=== PATIENT | female | born 1945 | race Caucasian/White ===

== ENCOUNTER 2022-01-24 06:02 | Inpatient (IN) | payer MEDICARE ==
[2022-01-24] MEDS ORDERED: Lactated Ringers 1,000 ML IV SCH (07:00)
[2022-01-24] MEDS: Nozin Nasal Sanitizer NASBOTH SCH ×3 (07:01→21:00)
[2022-01-24 07:20] LABS: CORONAVIRUS COVID-19 NAA NEGATIVE (NEGATIVE)
[2022-01-24] MEDS ORDERED: Midazolam 1 MG/ML 2 ML SDV ONE (07:20)
[2022-01-24] MEDS ORDERED: fentaNYL 100 MCG/2 ML SDV ONE (07:20)
[2022-01-24] MEDS ORDERED: Propofol 200 MG/20 ML SDV ONE (07:20)
[2022-01-24] MEDS ORDERED: ceFAZolin 2 GM in Premix Bag 1 BAG IV ONE (07:30)
[2022-01-24] MEDS ORDERED: SODIUM CHLORIDE 0.9% IV ONE (07:45)
[2022-01-24] MEDS ORDERED: TRANEXAMIC ACID IV ONE (07:45)
[2022-01-24] MEDS ORDERED: Sodium Chloride 0.9% 10 ML ONE (08:24)
[2022-01-24] MEDS ORDERED: ePHEDrine 50 MG/ML SDV ONE (08:24)
[2022-01-24] MEDS ORDERED: Lactated Ringers 1,000 ML ONE (09:06)
[2022-01-24] MEDS ORDERED: Ondansetron 4 MG/2 ML SDV IVPUSH PRN (09:19)
[2022-01-24] MEDS ORDERED: HYDROmorphone 0.5 MG/0.5 ML Syringe IVPUSH PRN (09:24)
[2022-01-24] MEDS ORDERED: diphenhydrAMINE 25 MG Cap PO PRN (09:25)
[2022-01-24] MEDS ORDERED: Melatonin 3 MG Tab PO PRN (09:39)
[2022-01-24] MEDS ORDERED: Acetaminophen 325 MG Tab PO SCH (10:00)
[2022-01-24] MEDS: Ketorolac 30 MG/ML SDV IVPUSH SCH ×2 (10:34→19:16)
[2022-01-24] MEDS: Acetaminophen 500 MG Tab PO SCH ×3 (10:38→21:04)
[2022-01-24] MEDS: traMADol 50 MG Tab PO PRN (12:25)
[2022-01-24] MEDS: Sodium Chloride 0.9% 1,000 ML IV SCH ×2 (12:38→21:10)
[2022-01-24] MEDS: oxyCODONE 5 MG Tab PO PRN ×2 (13:59→21:03)
[2022-01-24] MEDS: ceFAZolin 1 GM in Premix Bag 1 BAG IV SCH ×2 (14:00→21:47)
[2022-01-24] MEDS: Cyclobenzaprine 10 MG Tab PO PRN (16:11)
[2022-01-24] MEDS: Lisinopril 5 MG Tab PO SCH (21:01)
[2022-01-24] MEDS: Docusate Sodium 100 MG Cap PO SCH (21:01)
[2022-01-25] MEDS: oxyCODONE 5 MG Tab PO PRN ×2 (01:45→15:39)
[2022-01-25] MEDS: Acetaminophen 500 MG Tab PO SCH ×4 (05:19→21:19)
[2022-01-25] MEDS: Sodium Chloride 0.9% 1,000 ML IV SCH (05:20)
[2022-01-25] MEDS: ceFAZolin 1 GM in Premix Bag 1 BAG IV SCH (06:03)
[2022-01-25] MEDS: traMADol 50 MG Tab PO PRN ×3 (08:53→19:05)
[2022-01-25] MEDS: Celecoxib 200 MG Cap PO SCH ×2 (08:54→20:10)
[2022-01-25] MEDS: Docusate Sodium 100 MG Cap PO SCH ×2 (08:54→20:10)
[2022-01-25] MEDS: Enoxaparin 30 MG/0.3 ML Syringe SUBCUT SCH (08:56)
[2022-01-25] MEDS: Nozin Nasal Sanitizer NASBOTH SCH ×2 (08:56→20:10)
[2022-01-25] MEDS: Lisinopril 5 MG Tab PO SCH ×2 (10:49→20:11)
[2022-01-25] MEDS: Cyclobenzaprine 10 MG Tab PO PRN (21:18)
[2022-01-26] MEDS: Acetaminophen 500 MG Tab PO SCH ×4 (04:40→21:33)
[2022-01-26] MEDS: traMADol 50 MG Tab PO PRN ×5 (04:44→21:30)
[2022-01-26] MEDS: Lisinopril 5 MG Tab PO SCH ×2 (08:43→21:32)
[2022-01-26] MEDS: Enoxaparin 30 MG/0.3 ML Syringe SUBCUT SCH (08:43)
[2022-01-26] MEDS: Docusate Sodium 100 MG Cap PO SCH ×2 (08:43→21:31)
[2022-01-26] MEDS: Celecoxib 200 MG Cap PO SCH ×2 (08:44→21:31)
[2022-01-26] MEDS: Nozin Nasal Sanitizer NASBOTH SCH ×2 (08:44→21:31)
[2022-01-26] MEDS: oxyCODONE 5 MG Tab PO PRN (20:09)
[2022-01-27] MEDS: traMADol 50 MG Tab PO PRN ×3 (01:54→15:54)
[2022-01-27] MEDS: Acetaminophen 500 MG Tab PO SCH ×2 (04:33→10:49)
[2022-01-27] MEDS: oxyCODONE 5 MG Tab PO PRN (04:54)
[2022-01-27] MEDS: Nozin Nasal Sanitizer NASBOTH SCH (08:48)
[2022-01-27] MEDS: Celecoxib 200 MG Cap PO SCH (08:49)
[2022-01-27] MEDS: Enoxaparin 30 MG/0.3 ML Syringe SUBCUT SCH (08:49)
[2022-01-27] MEDS: Lisinopril 5 MG Tab PO SCH (08:49)
[2022-01-27] MEDS: Docusate Sodium 100 MG Cap PO SCH (08:49)
== END 2022-01-27 16:08 | disposition home health service (06) | DRG 470 ==
LOC: JP.SDS 06:02 → JP.MS 09:19 → JP.SDS 01-25 08:20 → JP.MS 01-25 08:25
PROVIDERS: ADMIT Specialist; ATTEND Specialist
PROC: 0SR90JZ Replacement of Right Hip Joint with Synthetic Substitute, Open Approach (ICD-10-PCS; principal; 2022-01-24)
DX: M16.11 Unilateral primary osteoarthritis, right hip (principal); E11.9 Type 2 diabetes mellitus without complications; I10 Essential (primary) hypertension; G89.29 Other chronic pain; Z79.899 Other long term (current) drug therapy
CPT/HCPCS: 0241U; 27130; 36415; 72170; 72170-26; 80053; 85027; 93005; 97110-GP; 97116-GP; 97162-GP; 97165-GO; 97530-GP; 97535-GP; A9270-GY; C1713; C1776; J0690; J1650; J1885; J2250; J2405; J2704; J3010; J3490; J7030; J7120

== ENCOUNTER 2024-09-09 09:25 | Inpatient (IN) | payer MEDICARE ==
[~2024-09-09 09:25] MED LIST: Bupivacaine 0.5% 50 ML MDV ONE
[2024-09-09 10:00] LABS: HEMATOCRIT 41.1 % (34.3-46.0); HEMOGLOBIN 13.6 g/dL (11.2-15.5); MEAN CORPUSCULAR HEMOGLOBIN 32.2 pg (31.6-35.5); MEAN CORPUSCULAR HGB CONC 33.1 g/dL (31.6-35.5); MEAN CORPUSCULAR VOLUME 97.4 fL (81.4-99.0); RED BLOOD CELL COUNT 4.22 M/uL (3.77-5.24); WHITE BLOOD CELL COUNT,WBC 12.4 K/uL (3.2-11.0)
[2024-09-09] MEDS: Lactated Ringers 1,000 ML IV SCH (10:00)
[2024-09-09] MEDS ORDERED: Midazolam 1 MG/ML 2 ML SDV ONE (10:17)
[2024-09-09] MEDS ORDERED: fentaNYL 100 MCG/2 ML SDV ONE (10:17)
[2024-09-09] MEDS ORDERED: Propofol 200 MG/20 ML SDV ONE ×2 (10:17→14:20)
[2024-09-09 10:20] LABS: A/G RATIO 1.2 (1.2-2.2); ALANINE AMINOTRANSFERASE,ALT 18 U/L (12-78); ALBUMIN 4.1 g/dL (3.4-5.0); ALKALINE PHOSPHATASE 75 U/L (46-116); ANION GAP 7.4 mmol/L (5.0-14.0); ASPARTATE AMNIOTRANSFERASE,AST 11 U/L (15-37); BILIRUBIN TOTAL 1.1 mg/dL (0.2-1.0); BLOOD UREA NITROGEN,BUN 13 mg/dL (7-18); CARBON DIOXIDE,CO2 31 mmol/L (21-32); CHLORIDE,CL 104 mmol/L (100-108); EST CRCL DRUG DOSING (CG) 32.49 mL/min; ESTIMATED GFR 57 mL/min (>60); GLUCOSE RANDOM 105 mg/dL (74-106); POTASSIUM,K 4.3 mmol/L (3.6-5.2); PROTEIN TOTAL,TP 7.5 g/dL (6.4-8.2); SODIUM,NA 142 mmol/L (140-148)
[2024-09-09] MEDS: Nozin Nasal Sanitizer NASBOTH SCH ×2 (11:02→20:01)
[2024-09-09] MEDS: ceFAZolin 2 GM in Premix Bag 1 BAG IV ONE (13:25)
[2024-09-09] MEDS ORDERED: Lactated Ringers 1,000 ML ONE (13:47)
[2024-09-09] MEDS: Tranexamic Acid 750 MG in Sodium Chloride 0.9% 50 ML IV ONE (14:00)
[2024-09-09] MEDS ORDERED: Phenylephrine 1% 10 MG/ML SDV ONE (14:03)
[2024-09-09] MEDS ORDERED: Sodium Chloride 0.9% 10 ML ONE (14:03)
[2024-09-09] MEDS ORDERED: Glycopyrrolate 0.2 MG/ML 5 ML MDV ONE (14:50)
[2024-09-09] MEDS ORDERED: diphenhydrAMINE 25 MG Cap PO PRN (15:40)
[2024-09-09] MEDS ORDERED: oxyCODONE 5 MG Tab PO PRN (15:41)
[2024-09-09] MEDS ORDERED: Ondansetron 4 MG/2 ML SDV IVPUSH PRN (15:42)
[2024-09-09] MEDS ORDERED: Magnesium Hydroxide 400 MG/5 ML Susp 30 ML Cup PO PRN (15:42)
[2024-09-09] MEDS ORDERED: Melatonin 3 MG Tab PO PRN (15:53)
[2024-09-09] MEDS: Morphine 2 MG/ML SYRINGE IV PRN (16:48)
[2024-09-09] MEDS: Acetaminophen 325 MG Tab PO SCH (17:00)
[2024-09-09] MEDS: oxyCODONE 5 MG Tab PO PRN (17:14)
[2024-09-09] MEDS: Ketorolac 15 MG/ML SDV IVPUSH PRN (17:15)
[2024-09-09] MEDS: Cyclobenzaprine 10 MG Tab PO PRN (19:18)
[2024-09-09] MEDS: ceFAZolin 2 GM in Sodium Chloride 0.9% 50 ML IV SCH (19:58)
[2024-09-09] MEDS: Lisinopril 10 MG Tab PO SCH (20:04)
[2024-09-09] MEDS: Betamethasone Dipropionate/Clotrimazole 0.05-1% Crm 15 GM Tube TOP SCH (20:04)
[2024-09-09] MEDS: Sodium Chloride 0.9% 1,000 ML IV SCH (22:37)
[2024-09-10 07:52] LABS: HEMATOCRIT 34.2 % (34.3-46.0); HEMOGLOBIN 11.1 g/dL (11.2-15.5); MEAN CORPUSCULAR HEMOGLOBIN 31.9 pg (31.6-35.5); MEAN CORPUSCULAR HGB CONC 32.5 g/dL (31.6-35.5); MEAN CORPUSCULAR VOLUME 98.3 fL (81.4-99.0); RED BLOOD CELL COUNT 3.48 M/uL (3.77-5.24); WHITE BLOOD CELL COUNT,WBC 12.3 K/uL (3.2-11.0)
[2024-09-10] MEDS: Fish Oil/Omega-3 Fatty Acids 1 Gm Cap PO SCH (08:30)
[2024-09-10] MEDS: Vitamin B6-pyridOXINE 50 MG Tab PO SCH (08:31)
[2024-09-10] MEDS: Cholecalciferol (Vitamin D3) 25 MCG Tab PO SCH (08:31)
[2024-09-10] MEDS: Cyanocobalamin (Vitamin B12) 1,000 MCG Tab PO SCH (08:31)
[2024-09-10] MEDS: Magnesium Oxide 400 MG Tab PO SCH (08:31)
[2024-09-10] MEDS: Multivitamins with Iron/Calcium/Folic Acid/Minerals Tab PO SCH (08:31)
[2024-09-10] MEDS: Fluticasone NASAL Spray 16 GM Bottle NASBOTH SCH (08:32)
[2024-09-10] MEDS: Aspirin 325 MG Tab.EC PO SCH (09:51)
[2024-09-10] MEDS: oxyCODONE 5 MG Tab PO PRN (10:49)
[2024-09-10] MEDS: Cyclobenzaprine 10 MG Tab PO PRN (12:16)
[2024-09-11] MEDS: Docusate Sodium 100 MG Cap PO PRN (08:18)
[2024-09-12] MEDS: oxyCODONE 5 MG Tab PO PRN (09:36)
[2024-09-12] MEDS ORDERED: Sodium Chloride 0.9% 10 ML Syringe IV PRN (10:25)
== END 2024-09-12 15:45 | disposition home or self-care (01) | DRG 470 ==
LOC: JP.SDS 09:25 → JP.MS 15:42 → JP.SDS 09-10 16:17
PROVIDERS: ADMIT Specialist; ATTEND Specialist
PROC: 0SRB0JZ Replacement of Left Hip Joint with Synthetic Substitute, Open Approach (ICD-10-PCS; principal; 2024-09-09 10:45)
DX: M16.12 Unilateral primary osteoarthritis, left hip (principal); E78.5 Hyperlipidemia, unspecified; I12.9 Hypertensive chronic kidney disease with stage 1 through stage 4 chronic kidney disease, or unspecified chronic kidney disease; E11.22 Type 2 diabetes mellitus with diabetic chronic kidney disease; N18.9 Chronic kidney disease, unspecified
CPT/HCPCS: 01214-QZ; 36415; 72170; 72170-26; 80053; 85027; 97110-GP; 97116-GP; 97161-GP; 97165-GO; 97530-GP; 97535-GO; A9270-GY; C1713; C1776; J0665; J0690; J1596; J1885; J2250; J2270; J2371; J2704; J3010; J3490; J7030; J7120